=== PATIENT | female | born 1985 ===

== ENCOUNTER → 2022-06-21 | Outpatient (CLI) | payer SELFPAY ==
[2022-06-21 15:54] LABS: BASOPHILS ABSOLUTE AUTO 0.08 K/mm3 (0.00-0.23); BASOPHILS PERCENT AUTO 1 % (0-2); EOSINOPHILS ABSOLUTE AUTO 0.83 K/mm3 (0.00-0.68); EOSINOPHILS PERCENT AUTO 10 % (0-6); Hematocrit 38.9 % (33.0-51.0); Hemoglobin 12.5 g/dL (11.5-16.0); IMMATURE GRAN ABSOLUTE AUTO 0.02 K/mm3 (0.00-0.10); IMMATURE GRAN PERCENT AUTO 0 % (0-1); LYMPHOCYTES ABSOLUTE AUTO 1.95 K/mm3 (0.84-5.20); LYMPHOCYTES PERCENT AUTO 24 % (21-46); MONOCYTES ABSOLUTE AUTO 0.63 K/mm3 (0.16-1.47); MONOCYTES PERCENT AUTO 8 % (4-13); Mean Corpuscular HGB 28.8 pg (26.0-34.0); Mean Corpuscular HGB Conc 32.1 g/dL (31.5-36.5); Mean Corpuscular Volume 90 fL (80-100); Mean Platelet Volume 11.5 fL (9.1-12.4); NEUTROPHILS ABSOLUTE AUTO 4.51 K/mm3 (1.96-9.15); NEUTROPHILS PERCENT AUTO 56 % (41-73); Platelet Count 322 K/mm3 (150-400); RDW Coefficient Variation 12.8 % (11.7-14.2); RDW Standard Deviation 42.2 fL (35.1-46.3); Red Blood Cell Count 4.34 M/mm3 (3.80-5.20); White Blood Cell Count 8.02 K/mm3 (4.00-11.30)
== END | disposition home or self-care (01) ==
LOC: LAB SHORT 11:40
PROVIDERS: Student in an Organized Health Care Education/Training Program
DX: D50.8 Other iron deficiency anemias (principal); D64.9 Anemia, unspecified
CPT/HCPCS: 85025

== ENCOUNTER → 2023-02-20 | Outpatient (CLI) | payer OTHER ==
[2023-02-20 19:20] LABS: BASOPHILS ABSOLUTE AUTO 0.06 K/mm3 (0.00-0.23); BASOPHILS PERCENT AUTO 1 % (0-2); EOSINOPHILS ABSOLUTE AUTO 0.63 K/mm3 (0.00-0.68); EOSINOPHILS PERCENT AUTO 8 % (0-6); Hemoglobin 11.3 g/dL (11.5-16.0); IMMATURE GRAN ABSOLUTE AUTO 0.01 K/mm3 (0.00-0.10); IMMATURE GRAN PERCENT AUTO 0 % (0-1); LYMPHOCYTES ABSOLUTE AUTO 2.14 K/mm3 (0.84-5.20); LYMPHOCYTES PERCENT AUTO 28 % (21-46); MONOCYTES ABSOLUTE AUTO 0.52 K/mm3 (0.16-1.47); MONOCYTES PERCENT AUTO 7 % (4-13); Mean Corpuscular HGB 26.8 pg (26.0-34.0); Mean Corpuscular HGB Conc 32.3 g/dL (31.5-36.5); Mean Corpuscular Volume 83 fL (80-100); Mean Platelet Volume 12.2 fL (9.1-12.4); NEUTROPHILS ABSOLUTE AUTO 4.26 K/mm3 (1.96-9.15); NEUTROPHILS PERCENT AUTO 56 % (41-73); Platelet Count 375 K/mm3 (150-400); RDW Coefficient Variation 14.3 % (11.7-14.2); RDW Standard Deviation 42.5 fL (35.1-46.3); Red Blood Cell Count 4.22 M/mm3 (3.80-5.20); White Blood Cell Count 7.62 K/mm3 (4.00-11.30)
[2023-02-20 19:42] LABS: Alanine Aminotransfer (ALT/SGP 21 U/L (12-78); Albumin, Blood 3.5 g/dL (3.4-5.0); Albumin/Globulin Ratio 0.9 (0.8-1.8); Alk Phos 79 U/L (50-136); Anion Gap 5 mmol/L (6-16); Aspartate Aminotrans (AST/SGOT 18 U/L (12-37); Bilirubin, Total <0.1 mg/dL (0.1-1.0); Blood Urea Nitrogen 9 mg/dL (8-24); Bun/Creatinine Ratio 12.9 (12.0-20.0); CO2, Blood 26 mmol/L (21-32); Calcium, Blood 8.7 mg/dL (8.5-10.1); Chloride, Blood 108 mmol/L (98-108); Globulin, Blood 3.7 g/dL (2.2-4.0); Glomerular Filtration Rate 116 (60-); Glucose, Blood 77 mg/dL (70-99); Potassium, Blood 3.8 mmol/L (3.5-5.5); Sodium, Blood 139 mmol/L (136-145); Total Protein, Blood 7.2 g/dL (6.4-8.2)
== END ==
LOC: LAB SHORT 16:45 → LAB 16:45
PROVIDERS: Student in an Organized Health Care Education/Training Program
DX: R53.83 Other fatigue (principal)
CPT/HCPCS: 80053; 84443; 85025

== ENCOUNTER → 2023-03-20 | Outpatient (CLI) | payer OTHER | LOC: LAB SHORT 17:43 → LAB 17:43 | DX: J06.9 Acute upper respiratory infection, unspecified (principal) | CPT/HCPCS: 87077; 87081; 87185 ==

== ENCOUNTER 2023-12-22 13:14 | Observation (INO) | payer OTHER ==
[~2023-12-22] VITALS: Ht 165.1 cm; Wt 74.8 kg
[2023-12-22 14:12] LABS: BASOPHILS ABSOLUTE AUTO 0.05 K/mm3 (0.00-0.23); BASOPHILS PERCENT AUTO 1 % (0-2); EOSINOPHILS ABSOLUTE AUTO 0.35 K/mm3 (0.00-0.68); EOSINOPHILS PERCENT AUTO 5 % (0-6); Hematocrit 32.7 % (33.0-51.0); Hemoglobin 9.8 g/dL (11.5-16.0); IMMATURE GRAN ABSOLUTE AUTO 0.03 K/mm3 (0.00-0.10); IMMATURE GRAN PERCENT AUTO 0 % (0-1); LYMPHOCYTES ABSOLUTE AUTO 1.33 K/mm3 (0.84-5.20); LYMPHOCYTES PERCENT AUTO 18 % (21-46); MONOCYTES ABSOLUTE AUTO 0.48 K/mm3 (0.16-1.47); MONOCYTES PERCENT AUTO 6 % (4-13); Mean Corpuscular HGB 21.2 pg (26.0-34.0); Mean Corpuscular Volume 71 fL (80-100); NEUTROPHILS ABSOLUTE AUTO 5.23 K/mm3 (1.96-9.15); NEUTROPHILS PERCENT AUTO 70 % (41-73); Platelet Count 376 K/mm3 (150-400); RDW Coefficient Variation 17.7 % (11.7-14.2); RDW Standard Deviation 43.9 fL (35.1-46.3); Red Blood Cell Count 4.63 M/mm3 (3.80-5.20); White Blood Cell Count 7.47 K/mm3 (4.00-11.30)
[2023-12-22 14:16] LABS: Source, Urine Clean Catch
[2023-12-22 14:23] LABS: Ethanol (Alcohol), Blood, Med <3 mg/dL; Salicylate <1.7 mg/dL (2.8-20.0); Thyroxine (T4) 9.4 ug/dL (4.8-13.9)
[2023-12-22 14:25] LABS: Appearance, Urine Clear (Clear); Bilirubin, Urine Neg (Neg); Blood, Urine Neg (Neg); Color, Urine Yellow (P-Yellow); Glucose Qualitative, Urine Neg (Neg); Ketones, Urine Neg (Neg); Leukocyte Esterase, Urine Neg (Neg); Nitrite, Urine Neg (Neg); Protein, Urine Neg (Neg); Specific Gravity, Urine 1.005 (1.003-1.022); Urobilinogen, Urine NORM (Normal)
[2023-12-22 14:31] LABS: Alanine Aminotransfer (ALT/SGP 15 U/L (12-78); Albumin, Blood 3.5 g/dL (3.4-5.0); Albumin/Globulin Ratio 0.9 (0.8-1.8); Alk Phos 75 U/L (50-136); Anion Gap 10 mmol/L (3-11); Aspartate Aminotrans (AST/SGOT 15 U/L (12-37); Bilirubin, Total 0.5 mg/dL (0.1-1.0); Blood Urea Nitrogen 9 mg/dL (8-24); Bun/Creatinine Ratio 12.9 (12.0-20.0); CO2, Blood 24 mmol/L (21-32); Calcium, Blood 8.7 mg/dL (8.5-10.1); Chloride, Blood 109 mmol/L (98-108); Globulin, Blood 3.9 g/dL (2.2-4.0); Glomerular Filtration Rate 115 (60-); Glucose, Blood 106 mg/dL (70-99); Potassium, Blood 4.1 mmol/L (3.5-5.5); Sodium, Blood 139 mmol/L (136-145); Total Protein, Blood 7.4 g/dL (6.4-8.2)
[2023-12-22 14:32] LABS: Acetaminophen, Random <2.0 ug/mL (10.0-30.0)
[2023-12-22 14:35] LABS: U Amphetamine Screen Not Detected; U Barbituate Screen Not Detected; U Benzodiazapine Screen Not Detected; U Cocaine Screen Not Detected; U Methadone Screen Not Detected; U Methamphetamine Screen Not Detected; U Opiates Screen Not Detected
[2023-12-22 14:36] LABS: U Buprenorphine Screen Not Detected; U Cannabinoids Screen Not Detected; U Oxycodone Screen Not Detected; U Phencyclidine Screen Not Detected
[2023-12-22 17:42] LABS: Influenza A, PCR NEGATIVE (NEGATIVE); Influenza B, PCR NEGATIVE (NEGATIVE); Resp Syncytial Virus, PCR NEGATIVE (NEGATIVE); SARS-Cov-2 (COVID-19) PCR, MMC NEGATIVE (NEGATIVE)
[2023-12-23 10:52] VITALS: BP 113/69
[2023-12-23] MEDS ORDERED: MULVITA PO (17:07)
[2023-12-23] MEDS ORDERED: ALLERGY MED PO (17:09)
[2023-12-27] MEDS ORDERED: BUPR150ER PO (13:37)
[2023-12-27] MEDS ORDERED: MELA3 PO (13:38)
[2023-12-27] MEDS ORDERED: QUET100 PO (13:38)
== END 2023-12-23 15:49 | disposition other institution (70) ==
LOC: ER 13:14 → EOR 13:15
PROVIDERS: ADMIT Student in an Organized Health Care Education/Training Program
DX: F31.4 Bipolar disorder, current episode depressed, severe, without psychotic features (principal); T14.91XA Suicide attempt, initial encounter; T45.0X2A Poisoning by antiallergic and antiemetic drugs, intentional self-harm, initial encounter; T39.1X2A Poisoning by 4-Aminophenol derivatives, intentional self-harm, initial encounter; T50.992A Poisoning by other drugs, medicaments and biological substances, intentional self-harm, initial encounter
CPT/HCPCS: 0241U; 80053; 80320; 81003; 81025; 84436; 85025; 93005; 93010; 99285-25; G0378; G0480

== ENCOUNTER 2023-12-23 08:18 | Inpatient (IN) | payer OTHER ==
[2023-12-23] MEDS ORDERED: FLU VACC TS2024-25(6MOS UP)/PF 45 MCG/0.5 ML SYRINGE IM SCH (09:35)
[2023-12-23] MEDS ORDERED: Ibuprofen 600 MG Tab PO PRN (09:35)
[2023-12-23] MEDS ORDERED: HydrOXYzine Pamoate 50 MG Cap PO PRN ×2 (09:35→09:40)
[2023-12-23] MEDS ORDERED: Acetaminophen 325 MG TABLET PO PRN (09:35)
[2023-12-23] MEDS ORDERED: Aluminum Hydroxide 320MG/5ML 473 ML PO PRN (09:35)
[2023-12-23] MEDS ORDERED: TraZODone HCl 50 MG Tab PO PRN (09:40)
[2023-12-23] MEDS ORDERED: Melatonin 3 MG Tab PO PRN (09:40)
[2023-12-23] MEDS ORDERED: MULVITA PO ×2 (17:07)
[2023-12-23] MEDS ORDERED: ALLERGY MED PO ×2 (17:09)
--- NOTE | 2023-12-23 18:02 | NUR ---
SHIFT SUMMARY/ADMISSION NOTE PT ARRIVED TO [facility] FROM ED AT APPROX 1554. PT IS AxOx4. PLEASANT AND COOPERATIVE WITH CARE. PT IS PRIMARILY GUATEMALAN SPEAKING, SO INDIGO MIXER WAS USED VIA PHONE FOR ADMISSION AND ORIENTING TO THE UNIT. ADMISSION COMPLETED PENDING GUATEMALAN VERSION OF ADMISSION DOCUMENT SIGNING NEEDED. ONCOMING SHIFT NOTIFIED. PT ENDORSED SI WITH PLAN BUT NO MEANS OR INTENT. SHE DENIES HALLUCINATIONS/DELUSIONS. PT REPORTS POOR SUPPORT SYSTEM. PT ATE DINNER ON UNIT. SHE IS CURRENTLY SITTING IN HER ROOM. DENIED ANY NEEDS WHEN ASKED. ENCOURAGED TO ASK FOR ANYTHING AND MADE AWARE THAT WE CAN CALL INTERPRETOR AT ANY TIME. PT VERBALIZED UNDERSTANDING.
[2023-12-23 18:25] VITALS: BP 111/72
[2023-12-23 20:00] VITALS: BP 113/69
[2023-12-23] MEDS ORDERED: QUEtiapine Fumarate 100 MG Tab PO SCH (21:00)
--- NOTE | 2023-12-23 22:45 | NUR ---
Patient walking back from bathroom when this RN arrived in room. Steady on feet, pleasant affect. Seroquel given per order for sleep. Asked patient about pain or discomfort (delore) and she denied. Will continue close monitoring every 15 minutes.
[2023-12-24 08:49] VITALS: BP 116/70
[2023-12-24] MEDS ORDERED: Thiamine HCl 100 MG Tab PO SCH (09:00)
[2023-12-24] MEDS ORDERED: Folic Acid 1 MG TAB PO SCH (09:00)
[2023-12-24] MEDS ORDERED: Multivitamins 1 Tab PO SCH (09:00)
[2023-12-24] MEDS ORDERED: buPROPion HCL 150 MG TAB.SR.12H PO SCH (09:00)
--- NOTE | 2023-12-24 18:47 | NUR ---
SHIFT SUMMARY PT AxOx4. PLEASANT AND COOPERATIVE WITH CARE. PT IS FRENCH SPEAKING, USED INTERPRETOR/PSYCHOLOGIST COUNSELING PHONE FOR COMMUNICATING THIS SHIFT. PT DENIED SI/HI AND AVD TODAY. SHE REPORTS FEELING "GOOD, MUCH BETTER TODAY." PT TOOK MEDS PRESCRIBED, ATTENDED GROUP THERAPY, MET WITH PROVIDER, AND HAD VISIT FROM FRIEND, MARI TODAY. PT WAS ABLE TO CALL HER MOM AND CHECK ON HER KIDS IN [facility] TODAY AND MAKE APPT FOR VISIT WITH SISTER AND BROTHER IN [place] FOR TOMORROW. PT IS CURRENTLY SITTING IN BED RESTING. SHE DENIES ANY NEEDS AT THIS TIME.
[2023-12-24 22:05] VITALS: BP 130/85
--- NOTE | 2023-12-25 05:14 | NUR ---
Patient up in milieu until HS. Made 2 phone calls and appeared to be in good spirits throughout the evening. Good eye contact, no SI noted on assessment. sleep hours approximately 7 hours so far.
[2023-12-25 08:35] VITALS: BP 125/81
--- NOTE | 2023-12-25 17:20 | NUR ---
SHIFT SUMMARY PT A/O X4; PLEASANT AND COOPERATIVE WITH CARE. ASSESSMENT CONDUCTED WITH THE USE OF THE INTERPRETOR PHONE. PT IS CYMRAES SPEAKING. PT DENIES SI, HI, OR ANY HALLUCINATIONS THIS SHIFT. SISTER AND BROTHER IN [place] CAME TO VISIT AND THE VISIT WENT WELL. PT MAY DC ON SATURDAY.
[2023-12-25 22:05] VITALS: BP 120/71
--- NOTE | 2023-12-26 06:26 | NUR ---
Patient spent the evening resting in her room. She was cooperative with assessment via interpretation service. She took her scheduled medication and PRN trazodone and melatonin without issue. She denied any current symptoms. She denied new concerns at this time. Plan of care ongoing. She appeared to be sleeping for 8 hours.
[2023-12-26 08:31] VITALS: BP 115/79
--- NOTE | 2023-12-26 16:05 | NUR ---
"Spiritual Care Consult Attempted | Ordered by Dr. Hodge Pt. is primarily a singaporean speaker who displays evidence of understanding more greek than she verbalizes that she knows. With this ged instructor's limited singaporean I could assertain that the Pt. and her sister have been in the area for approximately two years, and that they came from [facility]. Prayed with Pt. in greek and blessed her in singaporean. Criminal Psychologist Recommends: Any further Spiritual Care support of this Pt. should employ the use of translation services."
--- NOTE | 2023-12-26 16:29 | NUR ---
SHIFT SUMMARY PT A/O X4; PLEASANT AND COOPERATIVE WITH CARE. PT IS SLOVAK SPEAKING AND ASSESSMENTS HAVE BEEN CONDUCTED WITH THE USE OF THE INTERPRETOR PHONE. PT REPORTS THAT SHE IS DOING WELL OR "MUY JOHN". SHE DID OPEN UP MORE TO THE UNIT NURSE THIS SHIFT ABOUT HER BACKGROUND AND PAST TRAUMAS. PLAN IS TO TRY TO OBTAIN MORE SLOVAK SPEAKING RESOURCES FOR THE PATIENT AND POSSIBLE DC ON SATURDAY.
[2023-12-26 22:22] VITALS: BP 132/83
--- NOTE | 2023-12-27 06:01 | NUR ---
Patient spent most of the evening reading quietly in her room. She was cooperative with assessment via the environmental remediation specialist.. She took her scheduled medication and PRN melatonin and trazodone without issue. She denied new concerns at this time. She denied any symptoms at this time. She is able to make her needs known. Plan of care ongoing. She appeared to be sleeping for 8 hours.
[2023-12-27 09:12] VITALS: BP 121/75
--- NOTE | 2023-12-27 11:38 | NUR ---
PT EVALUATION DONE WITH THE ASSISTANCE OF INTERPERATER PNONE LINE. SHE DENIED SI, HI, AVH, ANXITY OR PAIN. PT HAD A BLOODY NOSE THAT HAD STOPPED AFTER A FEW MINUTES. SMALL AMOUNT OF BLOOD ON A WASHCLOTH. PT APPEARED TO BE IN GOOD HUMOR AND IS COOPERATIVE WITH CARE AND MEDICATION COMPLIANCE.
[2023-12-27] MEDS ORDERED: BUPR150ER PO ×2 (13:37)
[2023-12-27] MEDS ORDERED: MELA3 PO ×2 (13:38)
[2023-12-27] MEDS ORDERED: QUET100 PO ×2 (13:38)
--- NOTE | 2023-12-27 15:25 | NUR ---
PT WAS GIVEN ALL PRINTED DISCHARGE INSTRUCTIONS WITH THE AIDE OF THE PROOF CLERK PHONE LINE, PT DENIED ALL FEELINGS OF SI, HI OR AVH. SHE WAS DIRECTED TO CALL THE [facility] WITH QUESTIONS AND TO RETURN TO THE ER IF SYMPTOMS REOCCUR. PT WAS DISCHARGED WITH ALL OF HER DISCHARGE INSTRUCTIONS AND ALL OF HER BELONGINGS.
== END 2023-12-27 15:36 | disposition home or self-care (01) | DRG 885 ==
LOC: BHU 08:18
PROVIDERS: ADMIT Student in an Organized Health Care Education/Training Program
DX: F31.4 Bipolar disorder, current episode depressed, severe, without psychotic features (principal); R45.851 Suicidal ideations; F43.23 Adjustment disorder with mixed anxiety and depressed mood; Z79.899 Other long term (current) drug therapy
CPT/HCPCS: A9270

== ENCOUNTER 2024-01-27 01:47 | Day surgery (SDC) | payer OTHER ==
[~2024-01-27 01:47] MED LIST: ALLERGY MED PO; BUPR150ER PO; MELA3 PO; MULVITA PO; QUET100 PO; Sod Ferric Gluc Complx/Sucrose 125 MG in NS 100 ML IV SCH
[2024-01-27 10:12] VITALS: BP 117/83
== END 2024-01-27 11:32 | disposition home or self-care (01) ==
LOC: ATC 01:47
DX: D50.9 Iron deficiency anemia, unspecified (principal); T14.91XD Suicide attempt, subsequent encounter; F43.12 Post-traumatic stress disorder, chronic; F31.9 Bipolar disorder, unspecified; Z79.899 Other long term (current) drug therapy
CPT/HCPCS: 96365; J2916

== ENCOUNTER 2024-01-29 03:03 | Day surgery (SDC) | payer OTHER ==
[2024-01-29 16:11] VITALS: BP 118/77
== END 2024-01-29 17:18 | disposition home or self-care (01) ==
LOC: ATC 03:03
DX: D50.9 Iron deficiency anemia, unspecified (principal); Z79.899 Other long term (current) drug therapy
CPT/HCPCS: 96365; J2916

== ENCOUNTER 2024-01-31 01:19 | Day surgery (SDC) | payer OTHER ==
[2024-01-31 15:01] VITALS: BP 135/88
== END 2024-01-31 16:08 | disposition home or self-care (01) ==
LOC: ATC 01:19
DX: D50.9 Iron deficiency anemia, unspecified (principal); F31.9 Bipolar disorder, unspecified; F43.12 Post-traumatic stress disorder, chronic; Z79.899 Other long term (current) drug therapy
CPT/HCPCS: 96365; J2916

== ENCOUNTER 2024-02-03 00:12 | Day surgery (SDC) | payer OTHER ==
[2024-02-03 16:13] VITALS: BP 119/87
== END 2024-02-03 17:15 | disposition home or self-care (01) ==
LOC: ATC 00:12
DX: D50.9 Iron deficiency anemia, unspecified (principal)
CPT/HCPCS: 96365; J2916

== ENCOUNTER 2024-02-05 02:51 | Day surgery (SDC) | payer OTHER ==
[2024-02-05 08:10] VITALS: BP 137/78
== END 2024-02-05 09:25 | disposition home or self-care (01) ==
LOC: ATC 02:51
DX: D50.9 Iron deficiency anemia, unspecified (principal); T14.91XD Suicide attempt, subsequent encounter; F43.12 Post-traumatic stress disorder, chronic; F31.9 Bipolar disorder, unspecified; Z79.899 Other long term (current) drug therapy
CPT/HCPCS: 96365; J2916

== ENCOUNTER 2024-02-07 02:28 | Day surgery (SDC) | payer OTHER ==
[2024-02-07 15:49] VITALS: BP 127/80
== END 2024-02-07 16:50 | disposition home or self-care (01) ==
LOC: ATC 02:28
DX: D50.9 Iron deficiency anemia, unspecified (principal); F43.12 Post-traumatic stress disorder, chronic; F31.9 Bipolar disorder, unspecified; Z79.899 Other long term (current) drug therapy
CPT/HCPCS: 96365; J2916

== ENCOUNTER 2024-02-10 01:37 | Day surgery (SDC) | payer OTHER ==
[2024-02-10 15:35] VITALS: BP 128/76
== END 2024-02-10 16:45 | disposition home or self-care (01) ==
LOC: ATC 01:37
DX: D50.9 Iron deficiency anemia, unspecified (principal); F43.12 Post-traumatic stress disorder, chronic; F31.9 Bipolar disorder, unspecified; F51.04 Psychophysiologic insomnia; Z79.899 Other long term (current) drug therapy
CPT/HCPCS: J2916

== ENCOUNTER → 2024-04-23 | Outpatient (CLI) | payer OTHER ==
[~2024-04-23] MED LIST changes: -Sod Ferric Gluc Complx/Sucrose 125 MG in NS 100 ML IV SCH
[2024-04-23 17:18] LABS: Hematocrit 38.1 % (33.0-51.0); Hemoglobin 12.4 g/dL (11.5-16.0); Mean Corpuscular HGB 29.1 pg (26.0-34.0); Mean Corpuscular HGB Conc 32.5 g/dL (31.5-36.5); Mean Corpuscular Volume 89 fL (80-100); Platelet Count 303 K/mm3 (150-400); RDW Coefficient Variation 16.6 % (11.7-14.2); Red Blood Cell Count 4.26 M/mm3 (3.80-5.20); White Blood Cell Count 7.77 K/mm3 (4.00-11.30)
== END ==
LOC: LAB SHORT 15:41 → LAB 15:41
PROVIDERS: Registered Nurse Community Health
DX: D64.9 Anemia, unspecified (principal)
CPT/HCPCS: 85027